=== PATIENT | male | born 1970 | race Caucasian/White ===

== ENCOUNTER 2022-06-09 09:03 | Emergency (ER) | payer SELFPAY ==
[~2022-06-09] VITALS: Ht 177.8 cm; Wt 106.6 kg
--- NOTE | 2022-06-09 09:20 | NUR ---
DR THOMPSON AT BEDSIDE FOR EVALUATION.
[2022-06-09] MEDS ORDERED: KETOROLAC TROMETHAMINE 15 MG INJ ONE (09:28)
[2022-06-09] MEDS ORDERED: KETOROLAC TROMETHAMINE 15 MG INJ IM ONE (09:30)
--- NOTE | 2022-06-09 09:34 | NUR ---
PT MEDICATED FOR PAIN PER MD ORDER.
[2022-06-09] MEDS ORDERED: ACETAMINOPHEN 650 MG/20.3 ML LIQUID UDC PO ONE (10:15)
[2022-06-09] MEDS ORDERED: ACETAMINOPHEN ES 500 MG TABLET ONE (10:28)
[2022-06-09] MEDS ORDERED: ACETAMINOPHEN ES 500 MG TABLET PO ONE (10:45)
--- NOTE | 2022-06-09 11:08 | NUR ---
Patient discharged to home in stable condition. Written and verbal after care instructions given. Patient verbalizes understanding of instructions. Stressed follow up or return to ER for worsening s/s.
== END 2022-06-09 11:00 | disposition home or self-care (01) ==
LOC: ER 09:03
DX: M77.12 Lateral epicondylitis, left elbow (principal)
CPT/HCPCS: 99284; 93971; 73080; 73090; 96372; J1885; A4663; A9150

== ENCOUNTER 2024-10-31 12:46 | Emergency (ER) | payer MEDICAID ==
[~2024-10-31] VITALS: Ht 175.3 cm; Wt 108.9 kg
[2024-10-31 12:59] VITALS: O2SAT 98
[2024-10-31] MEDS ORDERED: TRIA60LO7 TP (13:33)
[2024-10-31] MEDS ORDERED: HYDR-501 PO (13:33)
== END 2024-10-31 13:38 | disposition home or self-care (01) ==
LOC: ER 12:46
DX: L42 Pityriasis rosea (principal); R21 Rash and other nonspecific skin eruption
CPT/HCPCS: A4606; A4663

== ENCOUNTER 2024-11-23 18:08 | Emergency (ER) | payer MEDICAID ==
[~2024-11-23] VITALS: Ht 175.3 cm; Wt 108.9 kg
[~2024-11-23 18:08] MED LIST: HYDR-501 PO; TRIA60LO7 TP
[2024-11-23 19:54] VITALS: BP 154/83; TEMP 98; O2SAT 98
== END 2024-11-23 19:54 | disposition home or self-care (01) ==
LOC: ER 18:08
DX: S46.001A Unspecified injury of muscle(s) and tendon(s) of the rotator cuff of right shoulder, initial encounter (principal); M54.2 Cervicalgia; X50.1XXA Overexertion from prolonged static or awkward postures, initial encounter; X50.9XXA Other and unspecified overexertion or strenuous movements or postures, initial encounter; Y93.89 Activity, other specified; Y92.89 Other specified places as the place of occurrence of the external cause; Y99.8 Other external cause status
CPT/HCPCS: 72125; 73030; A4606; A4663